=== PATIENT | female | born 1975 | race Two or more races ===

== ENCOUNTER 2017-04-25 11:16 | Emergency (ER) | payer OTHER ==
[~2017-04-25] VITALS: Ht 162.6 cm; Wt 131.5 kg
[~2017-04-25 11:16] MED LIST: ALBUTEROL SULF8.5 GM IH; FLOVENT 110MCG7.9 GM IH; NABUMETONE750 MG; PARAFON FORTE500 MG; PNEU16DI2; PROBIOTIC1 EAC3; PROMETHAZINE W118 ML PO; PROVENTIL3 ML/2.5 M IH; TUSSIONEX PENNKI5 ML PO; ZITHROMAX500 MG PO
== END 2017-04-25 17:58 | disposition home or self-care (01) ==
LOC: ER 11:16
DX: I10 Essential (primary) hypertension (principal)

== ENCOUNTER 2017-06-16 11:01 | Emergency (ER) | payer OTHER ==
[~2017-06-16] VITALS: Ht 157.5 cm; Wt 127.0 kg
[2017-06-16] MEDS ORDERED: COZAAR25 MG (11:23)
== END 2017-06-16 13:54 | disposition home or self-care (01) ==
LOC: ER 11:01
DX: B34.9 Viral infection, unspecified (principal)

== ENCOUNTER 2017-10-11 11:31 | Outpatient (CLI) | payer OTHER ==
[~2017-10-11 11:31] MED LIST changes: +COZAAR25 MG
== END 2017-10-11 11:38 | disposition home or self-care (01) ==
LOC: LAB 11:31
DX: R10.13 Epigastric pain (principal)

== ENCOUNTER 2017-12-11 11:21 | Outpatient (CLI) | payer OTHER | END 2017-12-11 11:26 | disposition home or self-care (01) | LOC: MAMO-SONO 11:21 | DX: N60.01 Solitary cyst of right breast (principal); Z12.31 Encounter for screening mammogram for malignant neoplasm of breast ==

== ENCOUNTER 2017-12-13 09:26 | Outpatient (CLI) | payer OTHER | END 2017-12-13 09:27 | disposition home or self-care (01) | LOC: LAB 09:26 | DX: E13.8 Other specified diabetes mellitus with unspecified complications (principal); N39.0 Urinary tract infection, site not specified; E03.8 Other specified hypothyroidism; E78.00 Pure hypercholesterolemia, unspecified ==

== ENCOUNTER 2017-12-17 10:31 | Outpatient (CLI) | payer OTHER | END 2017-12-17 10:53 | disposition home or self-care (01) | LOC: MAMO-SONO 10:31 → SONOGRAMA 10:31 | DX: N60.01 Solitary cyst of right breast (principal) ==

== ENCOUNTER 2018-01-26 11:35 | Emergency (ER) | payer OTHER ==
[~2018-01-26] VITALS: Ht 162.6 cm; Wt 127.0 kg
== END 2018-01-26 15:45 | disposition home or self-care (01) ==
LOC: ER 11:35
DX: K52.9 Noninfective gastroenteritis and colitis, unspecified (principal)

== ENCOUNTER 2019-03-17 08:24 | Outpatient (CLI) | payer OTHER | END 2019-03-17 08:30 | disposition home or self-care (01) | LOC: LAB 08:24 | DX: D64.89 Other specified anemias (principal); E13.9 Other specified diabetes mellitus without complications; N39.0 Urinary tract infection, site not specified; E03.8 Other specified hypothyroidism; M85.88 Other specified disorders of bone density and structure, other site ==

== ENCOUNTER 2019-05-11 11:59 | Outpatient (CLI) | payer OTHER | END 2019-05-11 12:04 | disposition home or self-care (01) | LOC: LAB 11:59 | DX: J11.1 Influenza due to unidentified influenza virus with other respiratory manifestations (principal); J20.0 Acute bronchitis due to Mycoplasma pneumoniae ==

== ENCOUNTER 2019-07-14 09:19 | Outpatient (CLI) | payer OTHER | END 2019-07-14 09:25 | disposition home or self-care (01) | LOC: LAB 09:19 | DX: J11.1 Influenza due to unidentified influenza virus with other respiratory manifestations (principal); R10.10 Upper abdominal pain, unspecified ==

== ENCOUNTER 2019-07-19 09:15 | Emergency (ER) | payer OTHER ==
[~2019-07-19] VITALS: Ht 162.6 cm; Wt 130.2 kg
== END 2019-07-19 10:58 | disposition home or self-care (01) ==
LOC: ER 09:15
DX: N30.80 Other cystitis without hematuria (principal)

== ENCOUNTER 2019-12-02 16:21 | Emergency (ER) | payer OTHER ==
[~2019-12-02] VITALS: Ht 162.6 cm; Wt 130.6 kg
== END 2019-12-02 20:15 | disposition home or self-care (01) ==
LOC: ER 16:21
DX: J06.9 Acute upper respiratory infection, unspecified (principal)

== ENCOUNTER 2019-12-05 16:47 | Emergency (ER) | payer OTHER ==
[~2019-12-05] VITALS: Ht 162.6 cm; Wt 130.6 kg
== END 2019-12-05 21:15 | disposition home or self-care (01) ==
LOC: ER 16:47
DX: K52.9 Noninfective gastroenteritis and colitis, unspecified (principal); E86.0 Dehydration

== ENCOUNTER → 2019-12-10 08:35 | Outpatient (CLI) | payer OTHER | END | disposition home or self-care (01) | LOC: LAB 08:35 | DX: I11.9 Hypertensive heart disease without heart failure (principal); E66.01 Morbid (severe) obesity due to excess calories; Z13.220 Encounter for screening for lipoid disorders; Z13.1 Encounter for screening for diabetes mellitus ==

== ENCOUNTER 2020-03-08 07:34 | Emergency (ER) | payer OTHER ==
[~2020-03-08] VITALS: Ht 162.6 cm; Wt 131.1 kg
[2020-03-08] MEDS ORDERED: ENALAPRIL MALE2.5 MG (07:48)
[2020-03-08] MEDS ORDERED: ZITHROMAX500 MG PO (12:10)
== END 2020-03-08 12:18 | disposition home or self-care (01) ==
LOC: ER 07:34
DX: B33.8 Other specified viral diseases (principal); B96.0 Mycoplasma pneumoniae [M. pneumoniae] as the cause of diseases classified elsewhere; Z03.818 Encounter for observation for suspected exposure to other biological agents ruled out

== ENCOUNTER → 2020-04-07 | Outpatient (CLI) | payer OTHER ==
[~2020-04-07] MED LIST changes: +ENALAPRIL MALE2.5 MG
== END | disposition home or self-care (01) ==
LOC: PPH VACUNA 14:01
DX: Z23 Encounter for immunization (principal)